=== PATIENT | male | born 1965 | race American Indian/Alaskan Native ===

== ENCOUNTER 2019-09-30 10:54 | Emergency (ER) | payer MEDICARE ==
[2019-09-30] MEDS ORDERED: KETOROLAC 30 MG/1 ML INJ IV ONE (12:51)
[2019-09-30] MEDS ORDERED: MORPHINE 2 MG/1 ML INJ IV ONE (12:51)
--- NOTE | 2019-09-30 13:12 | Emergency Department Report ---
ED General Adult HPI - General Chief complaint: Chest Pain Stated complaint: NECK PAIN Time Seen by Provider: 09/30/19 12:50 Source: patient Mode of arrival: Ambulatory Limitations: No Limitations - History of Present Illness Initial comments: 54-year-old male with history of HIV, off antivirals x5 months with unknown viral load and CD4 count, presents to the ED with "a crook in my neck."Patient states he woke up at approximately 2 AM with pain to the left side of his neck. States it is painful with rotation of the neck. Patient states he used Bio freeze on the area, without relief. Patient also reports shortness of breath, left-sided chest pain times approximately 1 week. Patient reports cough, denies fever. States pain is worse with cough. -: This morning Location: neck Radiation: extremity (left shoulder) Severity scale (0 -10): 10 Consistency: constant Improves with: immobilization Worsens with: movement Associated Symptoms: chest pain, cough, shortness of breath. denies: fever/chills, nausea/vomiting Treatments Prior to Arrival: other (biofreeze) - Related Data Previous Rx's Medication Instructions Recorded Last Taken Type Benzonatate [Tessalon Perles] 100 mg PO Q8HR PRN #20 capsule 09/30/19 Unknown Rx Cyclobenzaprine [Flexeril] 10 mg PO TID PRN #15 tablet 09/30/19 Unknown Rx Naproxen [Naprosyn] 500 mg PO BID #20 tablet 09/30/19 Unknown Rx predniSONE [Deltasone] 50 mg PO QDAY #5 tab 09/30/19 Unknown Rx Allergies Allergy/AdvReac Type Severity Reaction Status Date / Time No Known Allergies Allergy Verified 09/30/19 12:59 ED Review of Systems ROS: Stated complaint: NECK PAIN Other details as noted in HPI Comment: All other systems reviewed and negative Constitutional: denies: chills, fever Respiratory: cough, shortness of breath Cardiovascular: chest pain Musculoskeletal: as per HPI ED Past Medical Hx - Past Medical History Previous Medical History?: Yes Hx HIV: Yes - Surgical History Past Surgical History?: No - Social History Smoking Status: Current Every Day Smoker Substance Use Type: Marijuana - Medications Home Medications: Home Medications Medication Instructions Recorded Confirmed Last Taken Type Benzonatate [Tessalon Perles] 100 mg PO Q8HR PRN #20 capsule 09/30/19 Unknown Rx Cyclobenzaprine [Flexeril] 10 mg PO TID PRN #15 tablet 09/30/19 Unknown Rx Naproxen [Naprosyn] 500 mg PO BID #20 tablet 09/30/19 Unknown Rx predniSONE [Deltasone] 50 mg PO QDAY #5 tab 09/30/19 Unknown Rx ED Physical Exam - General Limitations: No Limitations General appearance: alert, in no apparent distress - Head Head exam: Present: atraumatic, normocephalic - Eye Eye exam: Present: normal appearance - ENT ENT exam: Present: mucous membranes moist - Neck Neck exam: Present: normal inspection, other (decreased leftward rotation s econdary to pain; tenderness in left trapezius) - Respiratory Respiratory exam: Present: normal lung sounds bilaterally, chest wall tenderness. Absent: respiratory distress, wheezes, rales, rhonchi - Cardiovascular Cardiovascular Exam: Present: regular rate, normal rhythm - GI/Abdominal GI/Abdominal exam: Present: soft. Absent: distended, tenderness - Extremities Exam Extremities exam: Present: normal inspection - Neurological Exam Neurological exam: Present: alert, oriented X3 - Psychiatric Psychiatric exam: Present: normal affect, normal mood - Skin Skin exam: Present: warm, dry, intact, normal color ED Course Vital Signs 09/30/19 09/30/19 09/30/19 10:54 12:18 12:47 Temperature 97.6 F Pulse Rate 100 H 92 H Respiratory 20 13 11 L Rate Blood Pressure 131/97 146/83 [Right] O2 Sat by Pulse 95 97 94 Oximetry 09/30/19 09/30/19 09/30/19 13:00 13:16 13:30 Temperature Pulse Rate 98 H 97 H 92 H Respiratory 16 11 L 23 Rate Blood Pressure [Right] O2 Sat by Pulse 94 94 95 Oximetry 09/30/19 09/30/19 09/30/19 13:46 14:00 14:16 Temperature Pulse Rate 98 H 90 92 H Respiratory 22 16 15 Rate Blood Pressure [Right] O2 Sat by Pulse 95 94 96 Oximetry 09/30/19 09/30/19 09/30/19 14:30 14:46 15:00 Temperature Pulse Rate 90 90 92 H Respiratory 23 18 20 Rate Blood Pressure [Right] O2 Sat by Pulse 96 96 95 Oximetry 09/30/19 09/30/19 09/30/19 15:16 15:30 17:00 Temperature Pulse Rate 86 85 94 H Respiratory 21 21 20 Rate Blood Pressure 143/76 [Right] O2 Sat by Pulse 97 96 95 Oximetry ED Medical Decision Making - Lab Data Result diagrams: 09/30/19 12:51 09/30/19 12:51 - EKG Data -: EKG Interpreted by Me EKG shows normal: sinus rhythm, axis, intervals, QRS complexes Rate: normal - EKG Data Interpretation: nonspecific ST-T wave palma - Radiology Data Radiology results: report reviewed, image reviewed - Medical Decision Making 54-year-old male likely with acute torticollis affecting the left side of the neck. Patient also initially reported chest pain x1 week that is worse with coughing. Patient has chest wall tenderness on exam. EKG, troponin, CTA chest are all unremarkable. Patient reports improvement of neck pain with morphine, Toradol, Flexeril. Outpatient follow-up advised. Prescriptions given. Return precautions given. - Differential Diagnosis Torticollis, ACS, pneumonia Critical care attestation.: If time is entered above; I have spent that time in minutes in the direct care of this critically ill patient, excluding procedure time. ED Disposition Clinical Impression: Costochondritis, acute, Torticollis, acute Disposition: DC-01 TO HOME OR SELFCARE Is pt being admited?: No Condition: Stable Instructions: Costochondritis (ED), Spasmodic Torticollis (ED) Prescriptions: predniSONE [Deltasone] 50 mg PO QDAY #5 tab Cyclobenzaprine [Flexeril] 10 mg PO TID PRN #15 tablet PRN Reason: Muscle Spasm Naproxen [Naprosyn] 500 mg PO BID #20 tablet Benzonatate [Tessalon Perles] 100 mg PO Q8HR PRN #20 capsule PRN Reason: Cough Referrals: PRIMARY MD TIESHA [Primary Care Provider] - 3-5 Days [facility] [Provider Group] - 3-5 Days STACEY MALONEY MD [Staff Physician] - 3-5 Days FILIPPO WHITE MD [Staff Physician] - 3-[address] [facility] [place] [Outside] - 3-5 Days Time of Disposition: 16:39
[2019-09-30 13:26] LABS: Basophils % (Auto) 0.2 % (0.0-1.8); Hematocrit 29.8 % (35.5-45.6); Hemoglobin 10.7 gm/dl (11.8-15.2); Lymphocytes # (Auto) 0.5 K/mm3 (1.2-5.4); Lymphocytes % (Auto) 6.6 % (13.4-35.0); Mean Corpuscular HGB Conc 36 % (32-34); Mean Corpuscular Volume 99 fl (84-94); Monocytes # (Auto) 0.3 K/mm3 (0.0-0.8); Monocytes % (Auto) 4.3 % (0.0-7.3); Platelet Count 340 K/mm3 (140-440); Red Blood Count 3.01 M/mm3 (3.65-5.03); Red Cell Distribution Width 14.7 % (13.2-15.2)
--- NOTE | 2019-09-30 13:52 | XRay Report ---
CHEST 2 VIEWS INDICATION / CLINICAL INFORMATION: Chest Pain. COMPARISON: None available. FINDINGS: SUPPORT DEVICES: None. HEART / MEDIASTINUM: No significant abnormality. LUNGS / PLEURA: No significant pulmonary or pleural abnormality. No pneumothorax. ADDITIONAL FINDINGS: No significant additional findings. IMPRESSION: 1. No acute findings. Signer Name: Fermin Yu MD Signed: 09/30/2019 11:15 AM Workstation Name: [id number]
[2019-09-30 14:05] LABS: BUN/Creatinine Ratio 18; Blood Urea Nitrogen 16 mg/dL (9-20); Hemolysis Index 0
[2019-09-30] MEDS ORDERED: CYCLOBENZAPRINE 10 MG TAB PO ONE (16:29)
--- NOTE | 2019-09-30 16:30 | Cat Scan Report ---
CTA CHEST WITH IV CONTRAST INDICATION: chest pain. TECHNIQUE: Axial CT images were obtained through the chest after injection of 100 mL of IV Omnipaque 350 IV cont rast. 3 plane MIP reconstructions were produced. All CT scans at this location are performed using CT dose reduction for ALARA by means of automated exposure control. COMPARISON: None available. FINDINGS: Pulmonary Arteries: No pulmonary emboli. Lungs: There is advanced centrilobular emphysema in the lungs with scattered areas of linear scarring . Trachea and Bronchi: No significant abnormality. Heart and Pericardium: No significant abnormality. 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 Lymphatics: No lymphadenopathy. Additional Findings: None. Upper Abdomen: No acute findings. Skeletal Structures: No significant osseous abnormality. IMPRESSION: 1. No CT evidence for pulmonary embolism. 2. No acute findings. Signer Name: Fermin Yu MD Signed: 09/30/2019 4:25 PM Workstation Name: [id number]
[2019-09-30 17:21] VITALS: BP 143/76
== END 2019-09-30 17:03 | disposition home or self-care (01) ==
LOC: ED 10:54
DX: M94.0 Chondrocostal junction syndrome [Tietze] (principal); M43.6 Torticollis; F17.200 Nicotine dependence, unspecified, uncomplicated; F12.90 Cannabis use, unspecified, uncomplicated; Z98.890 Other specified postprocedural states; Z21 Asymptomatic human immunodeficiency virus [HIV] infection status; Z79.899 Other long term (current) drug therapy
CPT/HCPCS: 36415; 71046; 71275; 80048; 84484; 85025; 85379; 93005; 93010; 96374; 96375; 99284; Q9967